=== PATIENT | female | born 2000 | race Caucasian/White ===

== ENCOUNTER 2018-09-02 20:29 | Emergency (ER) | payer SELFPAY, MEDICAID | END 2018-09-02 22:45 | disposition left against medical advice (07) | LOC: FTE 20:29 | DX: Z53.21 Procedure and treatment not carried out due to patient leaving prior to being seen by health care provider (principal) ==

== ENCOUNTER 2019-03-17 17:54 | Outpatient (CLI) | payer BC ==
[2019-03-18 01:52] LABS: RHOGAM PROFILE 1 1
== END 2019-03-18 02:20 | disposition home or self-care (01) ==
LOC: OBT 17:54 → L-D 17:55
DX: O46.93 Antepartum hemorrhage, unspecified, third trimester (principal); Z3A.38 38 weeks gestation of pregnancy
CPT/HCPCS: 76818; 86850; 86885; 86900; 86901

== ENCOUNTER 2019-03-26 08:17 | Inpatient (IN) | payer BC ==
[2019-03-26] MEDS ORDERED: CARBOPROST 250 MCG INJ IM (09:00)
[2019-03-26] MEDS ORDERED: IBUPROFEN 600 MG TAB PO (09:00)
[2019-03-26] MEDS ORDERED: OXYTOCIN 30 UNITS/LR 500 ML IV ×3 (09:00)
[2019-03-26] MEDS ORDERED: LIDOCAINE 1% (MPF) 30 ML INJ INJ (09:00)
[2019-03-26] MEDS ORDERED: MINERAL OIL LIGHT 10 ML VIAL TOP (09:00)
[2019-03-26] MEDS ORDERED: MISOPROSTOL 200 MCG TAB PR (09:00)
[2019-03-26] MEDS ORDERED: METHYLERGONOVINE 0.2 MG INJ IM (09:00)
[2019-03-26 11:26] LABS: ADD MAN DIFF? NO
[2019-03-26 11:29] LABS: WHITE BLOOD COUNT 8.5 10^3/ul (4.8-10.8)
[2019-03-26 11:29] LABS: BASOPHILS % 0.5 % (0.0-2.0); EOSINOPHILS # 0.1 10^3/ul (0.0-0.5); EOSINOPHILS % 1.2 % (0.0-7.0); HEMOGLOBIN 9.5 g/dl (12.0-16.0); LYMPHOCYTES % 35.1 % (18.0-55.0); MEAN CORPUSCULAR HEMOGLOBIN 28.5 pg (29.0-33.0); MEAN CORPUSCULAR HGB CONC 31.7 g/dl (32.0-37.0); MEAN CORPUSCULAR VOLUME 90.1 fl (72.0-104.0); MEAN PLATELET VOLUME 10.5 fl (7.4-10.4); MONOCYTES % 11.6 % (0.0-13.0); NEUTROPHIL # 4.4 10^3/ul (1.6-7.5); NEUTROPHILS % 51.4 % (30.0-74.0); PLATELET COUNT 209 10^3/UL (140-415); RED BLOOD COUNT 3.33 10^6/ul (4.20-5.40); RED CELL DISTRIBUTION WIDTH 14.7 % (11.5-14.5)
[2019-03-26] MEDS: AMPICILLIN 2 GM/NS (PMX) 100 ML IVPB (11:55)
[2019-03-26] MEDS: MISOPROSTOL 50 MCG CAPSULE PO ×3 (11:55→20:35)
[2019-03-26] MEDS: LACTATED RINGER'S 1,000 ML IV ×2 (11:55→19:42)
[2019-03-26 12:00] LABS: INR 0.92; PROTIME 12.5 Sec (11.9-14.9)
[2019-03-26 12:01] LABS: PARTIAL THROMBOPLASTIN TIME 28.6 Sec (23.0-35.0)
[2019-03-26 12:18] LABS: HEPATITIS B SURFACE ANTIGEN NEGATIVE (NEGATIVE)
[2019-03-26 15:32] LABS: RAPID PLASMA REAGIN NONREACTIVE (NR)
[2019-03-26] MEDS: AMPICILLIN 1 GM/NS (PMX) 50 ML IVPB ×2 (16:02→20:35)
[2019-03-27] MEDS: AMPICILLIN 1 GM/NS (PMX) 50 ML IVPB ×7 (00:35→23:15)
[2019-03-27] MEDS: MISOPROSTOL 50 MCG CAPSULE PO ×5 (05:00→13:00)
[2019-03-27] MEDS: LACTATED RINGER'S 1,000 ML IV ×4 (05:49→18:07)
[2019-03-27] MEDS: OXYTOCIN 30 UNITS/LR 500 ML IV (14:54)
[2019-03-27] MEDS: BUTORPHANOL 2 MG INJ IV (15:00)
[2019-03-27] MEDS ORDERED: FENTAnyl 2MCG/ML-ROPIV 0.2% 100 ML (18:19)
[2019-03-27] MEDS ORDERED: ONDANSETRON 4 MG INJ IV (19:00)
[2019-03-27] MEDS ORDERED: NALOXONE (0.4 MG/ML) INJ IV (19:00)
[2019-03-27] MEDS ORDERED: SOD CHLORIDE 0.9% 1,000 ML IV (19:30)
[2019-03-28] MEDS: FENTAnyl 2MCG/ML-ROPIV 0.2% 100 ML BAG EPI ×2 (02:35→10:46)
[2019-03-28] MEDS: AMPICILLIN 1 GM/NS (PMX) 50 ML IVPB ×3 (02:37→10:45)
[2019-03-28] MEDS: LACTATED RINGER'S 1,000 ML IV (02:39)
[2019-03-28] MEDS: ACETAMINOPHEN 325 MG TAB PO ×2 (04:57→12:53)
[2019-03-28] MEDS: GENTAMICIN 120 MG/NS (PMX) 100 ML IVPB (05:01)
[2019-03-28] MEDS: GENTAMICIN 80 MG/NS (PMX) 50 ML IVPB (12:42)
[2019-03-28 14:01] LABS: ADD MAN DIFF? NO
[2019-03-28 14:03] LABS: ABNORMAL IP MESSAGE 1; BASOPHIL # 0.1 10^3/ul (0.0-0.1); BASOPHILS % 0.2 % (0.0-2.0); HEMATOCRIT 29.6 % (37.0-47.0); HEMOGLOBIN 9.6 g/dl (12.0-16.0); LYMPHOCYTES # 1.2 10^3/ul (0.8-2.9); LYMPHOCYTES % 5.8 % (18.0-55.0); MEAN CORPUSCULAR HEMOGLOBIN 28.9 pg (29.0-33.0); MEAN CORPUSCULAR HGB CONC 32.4 g/dl (32.0-37.0); MEAN CORPUSCULAR VOLUME 89.2 fl (72.0-104.0); MEAN PLATELET VOLUME 10.1 fl (7.4-10.4); MONOCYTE # 1.8 10^3/ul (0.3-0.9); MONOCYTES % 8.4 % (0.0-13.0); NEUTROPHIL # 18.2 10^3/ul (1.6-7.5); NEUTROPHILS % 84.7 % (30.0-74.0); PLATELET COUNT 153 10^3/UL (140-415); RED BLOOD COUNT 3.32 10^6/ul (4.20-5.40); RED CELL DISTRIBUTION WIDTH 14.8 % (11.5-14.5)
[2019-03-28 14:03] LABS: WHITE BLOOD COUNT 21.5 10^3/ul (4.8-10.8)
[2019-03-28 14:05] LABS: POSITIVE DIFF @See below
[2019-03-28] MEDS ORDERED: DIPHENHYDRAMINE 50 MG INJ (14:50)
[2019-03-28] MEDS ORDERED: AZITHROMYCIN 500MG/NS (PMX) 250 ML IVPB (15:00)
[2019-03-28] MEDS: DIPHENHYDRAMINE 50 MG INJ IV (15:06)
[2019-03-28] MEDS ORDERED: HYDROCODONE/APAP (5/325) TAB PO ×2 (18:30)
[2019-03-28] MEDS ORDERED: METHYLERGONOVINE 0.2 MG INJ IM (18:30)
[2019-03-28] MEDS ORDERED: MISOPROSTOL 200 MCG TAB PR (18:30)
[2019-03-28] MEDS ORDERED: DIBUCAINE 1% 30 GM OINT TOP (18:30)
[2019-03-28] MEDS ORDERED: CARBOPROST 250 MCG INJ IM (18:30)
[2019-03-28] MEDS ORDERED: ZOLPIDEM 5 MG TAB PO (18:30)
[2019-03-28] MEDS: KETOROLAC 30 MG INJ IV (18:42)
[2019-03-28] MEDS: ACETAMINOPHEN 500 MG TAB PO (18:43)
[2019-03-28] MEDS: OXYTOCIN 30 UNITS/LR 500 ML IV (18:44)
[2019-03-28] MEDS: AMPICILLIN/SULB 3 GM/NS (PMX) 100 ML IVPB (20:11)
[2019-03-28] MEDS: WITCH HAZEL/GLYCERIN PAD PR (21:18)
[2019-03-28] MEDS: MAGNESIUM HYDROXIDE 30ML CUP PO (21:18)
[2019-03-28] MEDS: SENNA/DOCUSATE NA (8.6MG/50MG) TAB PO (21:18)
[2019-03-28] MEDS: LANOLIN HPA 1 PKT TOP (21:18)
[2019-03-28] MEDS: BENZOCAINE 20% 56 ML SPRAY TOP (21:18)
[2019-03-28] MEDS: LACTATED RINGER'S 1,000 ML IV* (23:44)
[2019-03-28] MEDS: IBUPROFEN 600 MG TAB PO (23:45)
[2019-03-29] MEDS: AMPICILLIN/SULB 3 GM/NS (PMX) 100 ML IVPB ×4 (02:01→20:11)
[2019-03-29] MEDS: LACTATED RINGER'S 1,000 ML IV* ×3 (02:19→18:19)
[2019-03-29] MEDS: IBUPROFEN 600 MG TAB PO ×4 (05:50→23:48)
[2019-03-29 07:04] LABS: ABNORMAL IP MESSAGE 1; HEMATOCRIT 21.8 % (37.0-47.0); HEMOGLOBIN 7.2 g/dl (12.0-16.0); MEAN CORPUSCULAR HEMOGLOBIN 29.5 pg (29.0-33.0); MEAN CORPUSCULAR VOLUME 89.3 fl (72.0-104.0); MEAN PLATELET VOLUME 10.9 fl (7.4-10.4); PLATELET COUNT 149 10^3/UL (140-415); RED BLOOD COUNT 2.44 10^6/ul (4.20-5.40); RED CELL DISTRIBUTION WIDTH 15.2 % (11.5-14.5)
[2019-03-29 07:20] LABS: ADD MAN DIFF? YES; POSITIVE DIFF @See below
[2019-03-29 08:06] LABS: ANISOCYTOSIS 1+ (0-0); BAND NEUTROPHILS #M 7.2 10^3/ul (0.0-0.6); BAND NEUTROPHILS % (M) 29 % (0-10); BURR CELLS 1+ (0-0); HYPOCHROMASIA 1+ (0-0); LYMPHOCYTES #M 3.5 10^3/ul (0.8-2.9); LYMPHOCYTES % (M) 14 % (18-55); METAMYELOCYTES #M 0.2 10^3/ul (0.0-0.0); METAMYELOCYTES %M 1 % (0-0); MICROCYTOSIS 1+ (0-0); MONOCYTES % (M) 4 % (0-13); PLATELET ESTIMATE NORMAL; POIKILOCYTOSIS 1+ (0-0); POLYCHROMASIA 1+ (0-0); SEG NEUT #M 14.8 10^3/ul (1.6-7.5); SEGMENTED NEUTROPHILS (M) % 52 % (30-74); SMUDGE%M 2 % (0-0)
[2019-03-29] MEDS: SENNA/DOCUSATE NA (8.6MG/50MG) TAB PO ×2 (08:27→21:21)
[2019-03-29] MEDS: MAGNESIUM HYDROXIDE 30ML CUP PO ×2 (08:27→21:21)
[2019-03-29 13:54] LABS: RHOGAM PROFILE 1 1
[2019-03-29] MEDS ORDERED: AMPICILLIN/SULB 3 GM/NS (PMX) 100 ML IVPB (19:00)
[2019-03-30] MEDS: AMPICILLIN/SULB 3 GM/NS (PMX) 100 ML IVPB ×3 (03:50→16:18)
[2019-03-30] MEDS: IBUPROFEN 600 MG TAB PO ×3 (05:56→18:00)
[2019-03-30 08:56] LABS: HEMATOCRIT 21.7 % (37.0-47.0); HEMOGLOBIN 7.1 g/dl (12.0-16.0); MEAN CORPUSCULAR HEMOGLOBIN 29.3 pg (29.0-33.0); MEAN CORPUSCULAR HGB CONC 32.7 g/dl (32.0-37.0); MEAN CORPUSCULAR VOLUME 89.7 fl (72.0-104.0); PLATELET COUNT 164 10^3/UL (140-415); RED BLOOD COUNT 2.42 10^6/ul (4.20-5.40); RED CELL DISTRIBUTION WIDTH 15.4 % (11.5-14.5)
[2019-03-30 08:56] LABS: WHITE BLOOD COUNT 22.6 10^3/ul (4.8-10.8)
[2019-03-30] MEDS: DIPHTH/TET/ACEL PERTUSS (ADULT) 0.5 ML VIAL IM* (09:00)
[2019-03-30] MEDS: MAGNESIUM HYDROXIDE 30ML CUP PO ×2 (09:00→21:00)
[2019-03-30] MEDS: SENNA/DOCUSATE NA (8.6MG/50MG) TAB PO ×2 (09:00→21:00)
[2019-03-30 09:07] LABS: ADD MAN DIFF? YES; POSITIVE DIFF @See below
[2019-03-30 09:36] LABS: ANISOCYTOSIS 1+ (0-0); BAND NEUTROPHILS #M 3.6 10^3/ul (0.0-0.6); BAND NEUTROPHILS % (M) 16 % (0-10); BURR CELLS 3+ (0-0); EOSINOPHILS % (M) 1 % (0-7); LYMPHOCYTES #M 6.1 10^3/ul (0.8-2.9); LYMPHOCYTES % (M) 27 % (18-55); MICROCYTOSIS 1+ (0-0); MONOCYTE #M 0.4 10^3/ul (0.3-0.9); MONOCYTES % (M) 2 % (0-13); PLATELET ESTIMATE NORMAL; POIKILOCYTOSIS 2+ (0-0); POLYCHROMASIA 2+ (0-0); SEGMENTED NEUTROPHILS (M) % 54 % (30-74); SMUDGE%M 3 % (0-0)
[2019-03-30] MEDS: LACTATED RINGER'S 1,000 ML IV* ×2 (10:19→18:19)
[2019-03-30] MEDS: CIPROFLOXACIN 400MG/D5W 200 ML IVPB ×2 (19:30→21:00)
[2019-03-31] MEDS: IBUPROFEN 600 MG TAB PO ×4 (00:05→18:00)
[2019-03-31] MEDS: LACTATED RINGER'S 1,000 ML IV* (02:19)
[2019-03-31] MEDS: CIPROFLOXACIN 400MG/D5W 200 ML IVPB ×2 (07:39→19:02)
[2019-03-31 08:45] LABS: WHITE BLOOD COUNT 16.3 10^3/ul (4.8-10.8)
[2019-03-31 08:45] LABS: ABNORMAL IP MESSAGE 1; HEMATOCRIT 21.4 % (37.0-47.0); MEAN CORPUSCULAR HEMOGLOBIN 28.6 pg (29.0-33.0); MEAN CORPUSCULAR HGB CONC 31.8 g/dl (32.0-37.0); MEAN CORPUSCULAR VOLUME 89.9 fl (72.0-104.0); MEAN PLATELET VOLUME 10.4 fl (7.4-10.4); PLATELET COUNT 200 10^3/UL (140-415); RED BLOOD COUNT 2.38 10^6/ul (4.20-5.40); RED CELL DISTRIBUTION WIDTH 15.6 % (11.5-14.5)
[2019-03-31] MEDS: SENNA/DOCUSATE NA (8.6MG/50MG) TAB PO ×2 (09:00→21:00)
[2019-03-31] MEDS: MAGNESIUM HYDROXIDE 30ML CUP PO ×3 (09:00→21:00)
[2019-03-31 09:12] LABS: ADD MAN DIFF? YES; HEMOGLOBIN 6.8 g/dl (12.0-16.0); POSITIVE DIFF @See below
[2019-03-31 10:21] LABS: ANISOCYTOSIS 1+ (0-0); BAND NEUTROPHILS #M 0.3 10^3/ul (0.0-0.6); BAND NEUTROPHILS % (M) 2 % (0-10); EOSINOPHILS % (M) 1 % (0-7); HYPOCHROMASIA 1+ (0-0); LYMPHOCYTES #M 2.2 10^3/ul (0.8-2.9); LYMPHOCYTES % (M) 14 % (18-55); MICROCYTOSIS 1+ (0-0); MONOCYTE #M 0.3 10^3/ul (0.3-0.9); MONOCYTES % (M) 2 % (0-13); MYELOCYTES #M 0.1 10^3/ul (0.0-0.0); MYELOCYTES % (M) 1 % (0-0); PLATELET ESTIMATE NORMAL; SEG NEUT #M 13.1 10^3/ul (1.6-7.5); SEGMENTED NEUTROPHILS (M) % 80 % (30-74); SMUDGE%M 2 % (0-0)
[2019-03-31] MEDS: SENNA TAB PO ×2 (13:00→21:00)
[2019-03-31] MEDS: PRENATAL VITAMIN PO (13:23)
[2019-03-31] MEDS: FERROUS SULFATE (EC) 325 MG TAB PO (13:23)
[2019-03-31] MEDS: LACTATED RINGER'S 1,000 ML IV (19:02)
[2019-04-01] MEDS: BENZOCAINE 20% 56 ML SPRAY TOP (00:11)
[2019-04-01] MEDS: IBUPROFEN 600 MG TAB PO ×4 (00:11→19:29)
[2019-04-01] MEDS: LACTATED RINGER'S 1,000 ML IV (03:00)
[2019-04-01] MEDS: CIPROFLOXACIN 400MG/D5W 200 ML IVPB (07:33)
[2019-04-01 08:00] LABS: ADD MAN DIFF? NO
[2019-04-01 08:04] LABS: BASOPHIL # 0.1 10^3/ul (0.0-0.1); BASOPHILS % 0.4 % (0.0-2.0); EOSINOPHILS # 0.2 10^3/ul (0.0-0.5); EOSINOPHILS % 1.5 % (0.0-7.0); HEMATOCRIT 22.4 % (37.0-47.0); HEMOGLOBIN 7.1 g/dl (12.0-16.0); LYMPHOCYTES # 2.1 10^3/ul (0.8-2.9); MEAN CORPUSCULAR HEMOGLOBIN 28.6 pg (29.0-33.0); MEAN CORPUSCULAR HGB CONC 31.7 g/dl (32.0-37.0); MEAN CORPUSCULAR VOLUME 90.3 fl (72.0-104.0); MEAN PLATELET VOLUME 9.5 fl (7.4-10.4); MONOCYTE # 1.5 10^3/ul (0.3-0.9); MONOCYTES % 9.8 % (0.0-13.0); NEUTROPHIL # 10.8 10^3/ul (1.6-7.5); NUCLEATED RED BLOOD CELLS # 0.1 10^3/ul (0.0-0.0); NUCLEATED RED BLOOD CELLS% 0.3 /100WBC (0.0-0.0); PLATELET COUNT 223 10^3/UL (140-415); RED BLOOD COUNT 2.48 10^6/ul (4.20-5.40); RED CELL DISTRIBUTION WIDTH 15.7 % (11.5-14.5)
[2019-04-01] MEDS: MAGNESIUM HYDROXIDE 30ML CUP PO (08:56)
[2019-04-01] MEDS: SENNA TAB PO (08:56)
[2019-04-01] MEDS: SENNA/DOCUSATE NA (8.6MG/50MG) TAB PO (08:57)
[2019-04-01] MEDS: MEASLES,MUMPS,RUBELLA VACCINE INJ SC* (09:00)
[2019-04-01] MEDS: VARICELLA VACCINE LIVE/PF 1,350 UNIT/0.5 ML ML SC* (09:00)
[2019-04-01] MEDS: PRENATAL VITAMIN PO (10:51)
[2019-04-01] MEDS: FERROUS SULFATE (EC) 325 MG TAB PO (10:51)
[2019-04-01] MEDS: CIPROFLOXACIN 500 MG TAB PO (19:29)
== END 2019-04-01 20:20 | disposition home or self-care (01) | DRG 805 ==
LOC: L-D 08:17 → PP1 03-28 20:25 → L-D 11:06
PROVIDERS: Obstetrics & Gynecology
PROC: 10E0XZZ Delivery of Products of Conception, External Approach (ICD-10-PCS; principal; 2019-03-28)
PROC: 0UQMXZZ Repair Vulva, External Approach (ICD-10-PCS; 2019-03-28)
DX: O48.0 Post-term pregnancy (principal); O41.1230 Chorioamnionitis, third trimester, not applicable or unspecified; O71.82 Other specified trauma to perineum and vulva; Z37.0 Single live birth; Z3A.40 40 weeks gestation of pregnancy
CPT/HCPCS: 62322; 76815; 83605; 85025; 85610; 85730; 86592; 86850; 86870; 86885; 86900; 86901; 87040-91; 87070; 87340; 88307; 90716; 93005